=== PATIENT | female | born 1995 | race Asian ===

== ENCOUNTER → 2023-04-14 | Outpatient (CLI) | payer SELFPAY ==
[2023-04-27 00:33] LABS: HPV GENOTYPE 16 Not Detected; HPV GENOTYPE 18 Not Detected; HPV HIGH RISK Not Detected; HPV SOURCE Cervical
== END ==
LOC: LAB SHORT 16:50 → LAB 16:50
PROVIDERS: Advanced Practice Midwife
DX: Z01.419 Encounter for gynecological examination (general) (routine) without abnormal findings (principal)
CPT/HCPCS: 87624; G0123

== ENCOUNTER 2024-03-27 21:16 | Emergency (ER) | payer OTHER ==
[~2024-03-27] VITALS: Ht 152.4 cm; Wt 72.6 kg
[2024-03-27] MEDS ORDERED: Ondansetron HCl 2 MG / ML 2ML Vial IV PRN (21:45)
[2024-03-27 21:59] LABS: BASOPHILS ABSOLUTE AUTO 0.04 K/mm3 (0.00-0.23); BASOPHILS PERCENT AUTO 0 % (0-2); EOSINOPHILS ABSOLUTE AUTO 0.21 K/mm3 (0.00-0.68); EOSINOPHILS PERCENT AUTO 2 % (0-6); Hematocrit 42.4 % (33.0-51.0); Hemoglobin 14.6 g/dL (11.5-16.0); IMMATURE GRAN ABSOLUTE AUTO 0.03 K/mm3 (0.00-0.10); IMMATURE GRAN PERCENT AUTO 0 % (0-1); LYMPHOCYTES ABSOLUTE AUTO 3.24 K/mm3 (0.84-5.20); LYMPHOCYTES PERCENT AUTO 26 % (21-46); MONOCYTES ABSOLUTE AUTO 0.59 K/mm3 (0.16-1.47); MONOCYTES PERCENT AUTO 5 % (4-13); Mean Corpuscular HGB Conc 34.4 g/dL (31.5-36.5); Mean Corpuscular Volume 90 fL (80-100); Mean Platelet Volume 9.4 fL (9.1-12.4); NEUTROPHILS ABSOLUTE AUTO 8.14 K/mm3 (1.96-9.15); NEUTROPHILS PERCENT AUTO 67 % (41-73); Platelet Count 419 K/mm3 (150-400); RDW Coefficient Variation 12.3 % (11.7-14.2); RDW Standard Deviation 40.9 fL (35.1-46.3); Red Blood Cell Count 4.71 M/mm3 (3.80-5.20); White Blood Cell Count 12.25 K/mm3 (4.00-11.30)
[2024-03-27 22:26] LABS: Albumin, Blood 4.1 g/dL (3.4-5.0); Bilirubin, Total 0.5 mg/dL (0.1-1.0); Bun/Creatinine Ratio 16.6 (12.0-20.0); Calcium, Blood 9.9 mg/dL (8.5-10.1); Creatinine, Blood 0.78 mg/dL (0.40-1.00); Globulin, Blood 4.2 g/dL (2.2-4.0); Total Protein, Blood 8.3 g/dL (6.4-8.2)
[2024-03-27 22:48] LABS: Source, Urine Clean Catch
[2024-03-27 23:22] LABS: Bilirubin, Urine Neg (Neg); Blood, Urine 5+ (Neg); Glucose Qualitative, Urine Neg (Neg); Ketones, Urine Neg (Neg); Leukocyte Esterase, Urine 1+ (Neg); Nitrite, Urine Neg (Neg); Protein, Urine 2+ (Neg); Urobilinogen, Urine 1+ (Normal)
[2024-03-27 23:32] LABS: Appearance, Urine Hazy (Clear); Color, Urine Yellow (P-Yellow)
[2024-03-27 23:33] LABS: Red Blood Cells, Urine TNTC /hpf (0-2); Squamous Epithelial Cells Many /hpf (Few)
[2024-03-27 23:34] LABS: Bacteria Mod /hpf
[2024-03-27] MEDS ORDERED: Ketorolac Tromethamine 15mg Vial IV ONE (23:55)
[2024-03-27] MEDS ORDERED: ONDA4ODT MM (23:55)
[2024-03-28] VITALS: BP 126/89
== END 2024-03-28 00:04 | disposition home or self-care (01) ==
LOC: ER 21:16
PROVIDERS: Emergency Medicine
DX: R10.31 Right lower quadrant pain (principal); R31.9 Hematuria, unspecified
CPT/HCPCS: 80053; 81001; 81025; 83690; 85025; 96374; 99284; J1885

== ENCOUNTER → 2024-05-16 | Outpatient (CLI) | payer OTHER ==
[~2024-05-16] MED LIST: ONDA4ODT MM
== END ==
LOC: LAB 16:53 → LAB SHORT 16:53
DX: R30.0 Dysuria (principal)
CPT/HCPCS: 87086

== ENCOUNTER → 2024-05-27 | Outpatient (CLI) | payer OTHER ==
[2024-05-27 17:27] LABS: Appearance, Urine Clear (Clear); Bilirubin, Urine Neg (Neg); Blood, Urine 2+ (Neg); Color, Urine Yellow (P-Yellow); Glucose Qualitative, Urine Neg (Neg); Ketones, Urine Neg (Neg); Leukocyte Esterase, Urine Neg (Neg); Nitrite, Urine Neg (Neg); Protein, Urine Neg (Neg); Specific Gravity, Urine 1.025 (1.003-1.022); Urobilinogen, Urine NORM (Normal)
[2024-05-27 17:50] LABS: Amorphous Light (0-Heavy); Bacteria Few /hpf; Squamous Epithelial Cells Few /hpf (Few)
== END ==
LOC: LAB SHORT 14:14 → LAB 14:14
PROVIDERS: Student in an Organized Health Care Education/Training Program
DX: N20.0 Calculus of kidney (principal)
CPT/HCPCS: 81001

== ENCOUNTER → 2024-06-17 | Outpatient (CLI) | payer OTHER ==
[2024-06-20 14:36] LABS: CALCULI MASS 27 mg
== END | disposition home or self-care (01) ==
LOC: LAB 13:19 → LAB SHORT 13:19
PROVIDERS: Student in an Organized Health Care Education/Training Program
DX: N20.0 Calculus of kidney (principal)
CPT/HCPCS: 82365